=== PATIENT | female | born 1995 | race Two or more races ===

== ENCOUNTER 2019-03-21 22:16 | Emergency (ER) | payer OTHER ==
--- NOTE | 2019-03-22 00:43 | ER Document Report ---
ED Medical Screen (RME) - General Chief Complaint: OB Problem (<20wks) Stated Complaint: ABDOMINAL PAIN RIGHT SIDE Time Seen by Provider: 03/22/19 00:40 Notes: 24-year-old female, G2, P1 at approximately 5 to 6 weeks gestation, chief complaint of right lower abdominal/pelvic pain. Not currently bleeding. TRAVEL OUTSIDE OF THE [place] IN LAST 30 DAYS: No Physical Exam - Vital signs Vitals: Temp Pulse Resp BP Pulse Ox 98.0 F 82 20 117/65 100 03/21/19 22:47 03/21/19 22:47 03/21/19 22:47 03/21/19 22:47 03/21/19 22:47 - Abdominal Tenderness: Nontender - Exam very limited by sitting position. No: Tender, Guarding Course - Re-evaluation Re-evalutation: I have greeted and performed a rapid initial assessment of this patient. A comprehensive ED assessment and evaluation of the patient, analysis of test results and completion of the medical decision making process will be conducted by additional ED providers. - Vital Signs Vital signs: Temp Pulse Resp BP Pulse Ox 98.0 F 82 20 117/65 100 03/21/19 22:47 03/21/19 22:47 03/21/19 22:47 03/21/19 22:47 03/21/19 22:47
[2019-03-22 01:09] LABS: ABSOLUTE EOSINOPHILS # (AUTO) 0.1 10^3/uL (0.0-0.6); ABSOLUTE LYMPHOCYTES (AUTO) 2.9 10^3/uL (0.5-4.7); ABSOLUTE MONOCYTES (AUTO) 0.7 10^3/uL (0.1-1.4); ABSOLUTE NEUT (AUTO) 7.5 10^3/uL (1.7-8.2); BASOPHILS % (AUTO) 0.3 % (0-2); EOSINOPHILS % (AUTO) 0.9 % (0-6); HEMATOCRIT 39.9 % (36.0-47.0); HEMOGLOBIN 13.3 g/dL (12.0-15.5); MEAN CORPUSCULAR HEMOGLOBIN 28.9 pg (27.0-33.4); MEAN CORPUSCULAR HGB CONC 33.5 g/dL (32.0-36.0); MEAN CORPUSCULAR VOLUME 87 fl (80-97); MONOCYTES % (AUTO) 6.4 % (3-13); PLATELET COUNT 305 10^3/uL (150-450); RED BLOOD COUNT 4.61 10^6/uL (3.72-5.28); SEGMENTED NEUTROPHILS % (AUTO) 66.4 % (42-78); TOTAL CELLS COUNTED % (AUTO) 100 %; WHITE BLOOD COUNT 11.3 10^3/uL (4.0-10.5)
[2019-03-22 01:34] LABS: APPEARANCE,URINE CLOUDY; BILIRUBIN,URINE NEGATIVE (NEGATIVE); COLOR,URINE YELLOW; GLUCOSE, URINE NEGATIVE (NEGATIVE); KETONES,URINE NEGATIVE (NEGATIVE); LEUKOCYTE ESTERASE,URINE SMALL (NEGATIVE); NITRITE,URINE NEGATIVE (NEGATIVE); PROTEIN,URINE NEGATIVE (NEGATIVE); URINE SPECIFIC GRAVITY 1.018; UROBILINOGEN,URINE NEGATIVE mg/dL (<2.0)
--- NOTE | 2019-03-22 02:23 | RADIOLOGY REPORT (SQ) ---
EXAM DESCRIPTION: US TRANSVAGINAL COMPLETED DATE/TME: 03/22/2019 00:41 CLINICAL HISTORY: 24 years, Female, right pelvic pain, +HCG COMPARISON: None. TECHNIQUE: Transverse and longitudinal transvaginal sonographic images of the pelvis in a first trimester patient LIMITATIONS: None. FINDINGS: Uterus measures 9.3 x 5.3 x 4.6 cm. Single, live intrauterine gestation with visualization of a yolk sac and pole. Heart tones obtained at 150 bpm. Current ultrasound age is 5 weeks 6 days. The right ovary measures 3 x 2 x 2 cm, the left 2 x 2 x 2 cm. No adnexal cyst or mass. Normal flow to each ovary. No free fluid IMPRESSION: Single live intrauterine gestation with current ultrasound age 5 weeks 6 days. Nonemergent follow-up recommended copyright 2010 [employer]- All Rights Reserved
--- NOTE | 2019-03-22 02:35 | ER Document Report ---
ED General - General Chief Complaint: OB Problem (<20wks) Stated Complaint: ABDOMINAL PAIN RIGHT SIDE Time Seen by Provider: 03/22/19 00:40 Notes: Patient is a 24-year-old G3, P0 at approximately 6 weeks by LMP who presents with intermittent lower abdominal pain for the past 24 hours. Describes it as an intermittent, stabbing, shooting pain to her lower abdomen. Moderate in nature. Symptoms come and go. No exacerbating or alleviating factor. No history of similar pain during this or previous pregnancies. Denies associated vaginal bleeding, dysuria or vaginal discharge. She has not yet established care for this . Denies a history of abdominal surgeries. Denies any current symptoms at the time of my evaluation. TRAVEL OUTSIDE OF THE [place] IN LAST 30 DAYS: No Past Medical History - General Information source: Patient - Social History Smoking Status: Never Smoker Frequency of alcohol use: None Drug Abuse: None Lives with: Spouse/Significant other Family History: Reviewed & Not Pertinent Patient has suicidal ideation: No Patient has homicidal ideation: No Renal/ Medical History: Denies: Hx Peritoneal Dialysis Review of Systems - Review of Systems Notes: Constitutional: Negative for fever. HENT: Negative for sore throat. Eyes: Negative for visual changes. Cardiovascular: Negative for chest pain. Respiratory: Negative for shortness of breath. Gastrointestinal: Positive for abdominal pain Genitourinary: Negative for dysuria. Musculoskeletal: Negative for back pain. Skin: Negative for rash. Neurological: Negative for headaches, weakness or numbness. 10 point ROS negative except as marked above and in HPI. Physical Exam - Vital signs Vitals: Temp Pulse Resp BP Pulse Ox 98.0 F 82 20 117/65 100 03/21/19 22:47 03/21/19 22:47 03/21/19 22:47 03/21/19 22:47 03/21/19 22:47 Interpretation: Normal Notes: PHYSICAL EXAMINATION: GENERAL: Well-appearing, well-nourished and in no acute distress. HEAD: Atraumatic, normocephalic. EYES: Pupils equal round and reactive to light, extraocular movements intact, sclera anicteric, conjunctiva are normal. ENT: nares patent, oropharynx clear without exudates. Moist mucous membranes. NECK: Normal range of motion, supple without lymphadenopathy LUNGS: Breath sounds clear to auscultation bilaterally and equal. No wheezes rales or rhonchi. HEART: Regular rate and rhythm without murmurs ABDOMEN: Soft, nontender, normoactive bowel sounds. No guarding, no rebound. No masses appreciated. EXTREMITIES: Normal range of motion, no pitting or edema. No cyanosis. NEUROLOGICAL: No focal neurological deficits. Moves all extremities sp ontaneously and on command. PSYCH: Normal mood, normal affect. SKIN: Warm, Dry, normal turgor, no rashes or lesions noted. Course - Re-evaluation Re-evalutation: 03/22/19 02:33 Patient presents with a mild amount of lower abdominal pain in the setting of a first trimester . Ultrasound does demonstrate a viable intrauterine with active heart rate. No active bleeding at time of presentation. No bleeding by history. Patient's abdominal exam is otherwise benign without any focal tenderness. I do not suspect an acute appendicitis, pyelonephritis, cystitis, or bowel obstruction. At this time will discharge with return precautions and follow-up recommendations. Verbal discharge instructions given a the bedside and opportunity for questions given. Medication warnings reviewed. Patient is in agreement with this plan and has verbalized understanding of return precautions and the need for primary care follow-up in the next 24-72 hours. - Vital Signs Vital signs: Temp Pulse Resp BP Pulse Ox 98.0 F 82 20 117/65 100 03/21/19 22:47 03/21/19 22:47 03/21/19 22:47 03/21/19 22:47 03/21/19 22:47 - Laboratory Result Diagrams: 03/22/19 00:50 Laboratory results interpreted by me: 03/22/19 03/22/19 03/22/19 00:50 00:50 00:50 WBC 11.3 H Beta HCG, Quant 98480.00 H Ur Leukocyte Esterase SMALL H - Diagnostic Test Radiology reviewed: Reports reviewed Discharge - Discharge Clinical Impression: First trimester , Abdominal pain affecting Condition: Good Disposition: HOME, SELF-CARE Additional Instructions: Your ultrasound today shows a living intrauterine . Please follow closely with your primary care [employer]. Please return if you develop severe abdominal pain, bleeding that goes through more than 2 pads for more than 2 hours, pass out, or have any other symptoms that are concerning to you. Please follow-up closely with your OBGYN regarding todays visit.
[2019-03-22 02:55] VITALS: BP 105/60
== END 2019-03-22 02:45 | disposition home or self-care (01) ==
LOC: ER 22:16
DX: O26.891 Other specified pregnancy related conditions, first trimester (principal); R10.30 Lower abdominal pain, unspecified; Z3A.01 Less than 8 weeks gestation of pregnancy
CPT/HCPCS: 36415; 76817; 81001; 84702; 85025; 86900; 86901; 93976; 99284